=== PATIENT | male | born 1960 | race Caucasian/White ===

== ENCOUNTER 2018-04-23 10:24 | Emergency (ER) | payer OTHER ==
--- NOTE | 2018-04-23 11:20 | UC ---
Cardiac HPI - HPI Summary HPI Summary: 57 y/o male 40 min hx of chest tightness and palpitations the palpitation is constant with chest pressure, no sweating , no sob no hx of CAD pt. was driving to PT this morning as he started having symptoms no fever, no chills - History of Current Complaint Chief Complaint: UCChestPain Stated Complaint: CHEST PAIN HEART RACING Time Seen by Provider: 04/23/18 10:29 Hx Obtained From: Patient Onset/Duration: Sudden Onset, Lasting Minutes - 40 min Timing: Constant Initial Severity: Moderate Current Severity: Moderate Pain Intensity: 4 Chest Pain Location: Mid Sternal Character: Fast, Pounding, Tightness Aggravating Factor(s): Nothing Alleviating Factor(s): Nothing Associated Signs & Symptoms: Positive: Chest Pain - chest tightness, Palpitations. Negative: Weakness, Dizziness, SOB, Cough, Hemoptysis, Back Pain , Abdominal Pain, Calf Pain/Swelling - Allergy/Home Medications Allergies/Adverse Reactions: Allergies Allergy/AdvReac Type Severity Reaction Status Date / Time Sulfa (Sulfonamide Allergy Hives Verified 04/23/18 10:33 Antibiotics) Home Medications: Home Medications Simvastatin [Zocor 5 MG-] 5 mg PO DAILY 04/23/18 [History Confirmed 04/23/18] Tamsulosin CAP* [Flomax CAP*] 0.4 mg PO BID 04/23/18 [History Confirmed 04/23/18 ] PMH/Surg Hx/FS Hx/Imm Hx Previously Healthy: Yes - Surgical History Surgical History: Yes Surgery Procedure, Year, and Place: appendectomy 1986 - Family History Known Family History: Negative: Diabetes - Social History Alcohol Use: Rare Substance Use Type: None Smoking Status (MU): Light Every Day Tobacco Smoker Type: Cigars Review of Systems All Other Systems Reviewed And Are Negative: Yes Constitutional: Positive: Fatigue Skin: Positive: Negative Eyes: Positive: Negative ENT: Positive: Negative Respiratory: Positive: Negative Cardiovascular: Positive: Palpitations, Chest Pain Gastrointestinal: Positive: Negative Is Patient Immunocompromised?: No Physical Exam Triage Information Reviewed: Yes Appearance: Well-Appearing, No Pain Distress Vital Signs: Initial Vital Signs Temp 97.5 F 04/23/18 10:30 Pulse 144 04/23/18 10:30 Resp 18 04/23/18 10:30 BP 113/83 04/23/18 10:30 Pulse Ox 98 04/23/18 10:30 Vital Signs Reviewed: Yes Eye Exam: Normal Eyes: Positive: Conjunctiva Clear ENT: Positive: Normal ENT inspection, Hearing grossly normal, Pharynx normal Neck exam: Normal Neck: Positive: Supple, Nontender, No Lymphadenopathy Respiratory: Positive: Chest non-tender, Lungs clear, Normal breath sounds, No respiratory distress Cardiovascular: Positive: Tachycardia Abdomen Description: Positive: Nontender, Soft. Negative: CVA Tenderness (R), CVA Tenderness (L), Distended, Guarding Bowel Sounds: Positive: Present Skin Exam: Normal Diagnostics - EKG Cardiac Rate: Tachycardia, Other Rate - junctional tachycardia Cardiac Rhythm: Sinus: Normal - tachy 144 b/m Ectopy: None ST Segment: Normal - Assessment/Plan Course Of Treatment: palpitation / tachycardai. pt. was placed on rn cardiac with the HR of 170. Adenosin 6 mg was given with no improvements follow by 12 mg and HR came down to 105 with symptomatic improvent. pt. was taken by EMS to [place]. spoke to Dr. Mehul Contreras. [facility] - Clinical Impression Provider Diagnosis: Palpitation, Tachycardia Discharge - Sign-Out/Discharge Documenting (check all that apply): Patient Departure All imaging exams completed and their final reports reviewed: No Studies - Discharge Plan Condition: Guarded Disposition: TRANS HIGHER LVL OF CARE FAC Referrals: No Primary Care Phys,NOPCP [Primary Care Provider] - - Billing Disposition and Condition Condition: GUARDED Disposition: Trans Higher Lvl of Care Fac
[2018-04-23] MEDS ORDERED: Adenosine* 3 MG/ML VIAL IV PUSH ONE ×2 (11:24)
[2018-04-23 11:25] VITALS: BP 123/82
[2018-04-23] MEDS ORDERED: NS 0.9% 1000 ML* 1,000 ML IV SCH (14:15)
== END 2018-04-23 11:22 | disposition short-term general hospital (02) ==
LOC: UCCORT 10:24
DX: R00.2 Palpitations (principal); R00.0 Tachycardia, unspecified; Z88.2 Allergy status to sulfonamides; F17.210 Nicotine dependence, cigarettes, uncomplicated
CPT/HCPCS: 93005; 96374; 96376; 99205; G0463; J0153